=== PATIENT | female | born 1985 | race Caucasian/White ===

== ENCOUNTER 2023-05-28 08:00 | Outpatient (CLI) | payer OTHER ==
[2023-05-28 17:04] LABS: BILIRUBIN,URINE NEGATIVE (NEGATIVE); GLUCOSE, URINE (UA) NEGATIVE (NEGATIVE); KETONES,URINE (UA) NEGATIVE (NEGATIVE); LEUKOCYTE ESTERASE, URINE NEGATIVE (NEGATIVE); NITRITE,URINE NEGATIVE (NEGATIVE); OCCULT BLOOD,URINE NEGATIVE (NEGATIVE); PROTEIN,URINE NEGATIVE (NEGATIVE); UROBILINOGEN,URINE 0.2 (NORMAL) E.U./dL (NORMAL)
[2023-05-28 17:20] LABS: BACTERIA,URINE None Seen /HPF (None Seen); CLARITY,URINE HAZY (CLEAR); RBC,URINE None Seen /HPF (0-5); SQUAMOUS EPITHELIAL CELL,UR FEW Squamous (<= Few); WBC,URINE 0-3 /HPF (0-5)
== END 2023-05-28 23:59 | disposition home or self-care (01) ==
LOC: LAB.WC 08:00
PROVIDERS: ATTEND Nurse Practitioner
DX: Z32.01 Encounter for pregnancy test, result positive (principal)
CPT/HCPCS: 81001; 87086

== ENCOUNTER 2023-06-01 13:13 | Outpatient (CLI) | payer OTHER ==
[2023-06-01 17:57] LABS: BASOPHILS % (AUTO) 0.5 %; EOSINOPHILS # (AUTO) 0.1 10^3/uL (0.0-0.7); EOSINOPHILS % (AUTO) 1.1 %; HCT - HEMATOCRIT 33.5 % (37.0-47.0); HGB - HEMOGLOBIN 11.1 g/dL (12.0-16.0); LYMPHOCYTES % (AUTO) 30.3 %; MEAN CORPUSCULAR HEMOGLOBIN 30.9 pg (27.0-31.0); MEAN CORPUSCULAR HGB CONC 33.1 g/dL (32.0-36.0); MEAN CORPUSCULAR VOLUME 93.3 fL (81.0-99.0); MEAN PLATELET VOLUME 10.8 fL (7.9-10.8); MONOCYTES # (AUTO) 0.4 10^3/uL (0.0-1.0); MONOCYTES % (AUTO) 5.7 %; NEUTROPHILS # (AUTO) 4.1 10^3/uL (1.5-6.6); NEUTROPHILS % (AUTO) 62.1 %; PLT - PLATELET COUNT 281 10^3/uL (130-450); RED BLOOD COUNT 3.59 10^6/uL (4.20-5.40); RED CELL DISTRIBUTION WIDTH 12.6 % (12.0-15.0); WHITE BLOOD COUNT 6.5 x10^3/uL (4.8-10.8)
[2023-06-03 06:08] LABS: RPR Non Reactive (Non Reactive)
[2023-06-03 07:08] LABS: HBsAG SCREEN Negative (Negative)
[2023-06-03 10:08] LABS: VARICELLA-ZOSTER AB IGG 1718 index (Immune >165)
[2023-06-05 01:08] LABS: HCV AB Non Reactive (Non Reactive)
== END 2023-06-01 13:14 | disposition home or self-care (01) ==
LOC: LAB.N 13:13
PROVIDERS: ATTEND Pediatrics
DX: Z32.01 Encounter for pregnancy test, result positive (principal)
CPT/HCPCS: 36415; 85025; 86592; 86762; 86787; 86803; 86850; 86900; 86901; 87340; 87389

== ENCOUNTER 2023-06-06 11:51 | Outpatient (CLI) | payer OTHER ==
--- NOTE | 2023-06-06 13:01 | Ultrasound Report ---
PROCEDURE: OB 1st Trimester INDICATIONS: POSITIVE TEST OUTSIDE/PRIOR DATING DATA: Last menstrual period (LMP): 04/09/2023. LMP-based estimated date of delivery (MARISOL): 01/14/2024. First dating scan (date and location): 06/06/2023. Estimated date of delivery (MARISOL) from first dating scan: 01/12/2024. TECHNIQUE: Real-time scanning was performed of the fetus and maternal pelvic organs, with image documentation. COMPARISON: None. FINDINGS: Intrauterine gestational sac present. Embryo: Present, measuring 2 cm, 8 weeks 4 days. Heart rate: 176 bpm. Other: No perigestational fluid collection. Measurement variability in dating: +/- 4 weeks by LMP, +/- 7 days by mean sac diameter (use before 6 weeks gestation if crown-rump length not able to be measured), +/- 5 days by crown-rump length (6-12 weeks gestation). Maternal organs: Ovaries appear within normal limits. IMPRESSION: Single living intrauterine at 8 weeks 4 days, MARISOL of 01/12/2024. Findings are concordant [facility] clinical dating. Reviewed by: Teddy Mcnally MD on 06/06/2023 12:59 PM PDT Approved by: Teddy Mcnally MD on 06/06/2023 12:59 PM PDT Station ID: [id number]
== END 2023-06-06 11:52 | disposition home or self-care (01) ==
LOC: DI 11:51
PROVIDERS: ATTEND Nurse Practitioner
DX: Z34.91 Encounter for supervision of normal pregnancy, unspecified, first trimester (principal)

== ENCOUNTER 2023-06-18 08:00 | Outpatient (CLI) | payer OTHER ==
[2023-06-18 17:46] LABS: CHLAMYDIA TRACHOMATIS DNA NEGATIVE (NEGATIVE); NEISSERIA GONORRHOEAE DNA NEGATIVE (NEGATIVE); TRICHOMONAS VAGINALIS DNA NEGATIVE (NEGATIVE)
== END 2023-06-18 23:59 | disposition home or self-care (01) ==
LOC: LAB.WC 08:00
PROVIDERS: ATTEND Nurse Practitioner
DX: Z11.3 Encounter for screening for infections with a predominantly sexual mode of transmission (principal)
CPT/HCPCS: 87491; 87591; 87661

== ENCOUNTER 2023-06-20 14:36 | Outpatient (CLI) | payer OTHER | END 2023-06-20 14:37 | disposition home or self-care (01) | LOC: LAB 14:36 | PROVIDERS: ATTEND Nurse Practitioner | DX: Z34.90 Encounter for supervision of normal pregnancy, unspecified, unspecified trimester (principal) ==

== ENCOUNTER 2023-08-06 12:54 | Outpatient (CLI) | payer OTHER | END 2023-08-06 12:55 | disposition home or self-care (01) | LOC: LAB.N 12:54 | PROVIDERS: ATTEND Obstetrics & Gynecology | DX: O09.521 Supervision of elderly multigravida, first trimester (principal) | CPT/HCPCS: 36415; 81511; 82950 ==

== ENCOUNTER 2023-09-03 16:56 | Outpatient (CLI) | payer OTHER ==
--- NOTE | 2023-09-04 20:34 | Ultrasound Report ---
PROCEDURE: OB Anatomy Scan INDICATIONS: SUPERVISION OF OUTSIDE/PRIOR DATING DATA: Last menstrual period (LMP): 04/09/2023. LMP-based estimated date of delivery (MARISOL): 01/14/2024. First dating scan (date and location): 06/06/2023. Estimated date of delivery (MARISOL) from first dating scan: 01/12/2024. The below data below was generated using the working MARISOL of 01/14/2024 TECHNIQUE: Real-time scanning was performed of the fetus, with image documentation and biometric measurements. Endovaginal scanning: Not performed. COMPARISON: 06/06/2023 FINDINGS: General: A single living intrauterine gestation is present. Presentation: Transverse with head towards maternal right side. Placenta: Placental position is posterior, without previa. Amniotic fluid index: 14.9 cm, within normal limits for gestational age. heart rate: 158 beats per minute. Maternal cervical canal: Closed and measures 5.05 cm long; normal length is 2.5 cm or more. biometrics: Biparietal diameter: 4.74 cm, 20 weeks, 2 days, 22.5% Head circumference: 19.13 cm, 21 weeks, 3 days, 58.3% Abdominal circumference: 16.36 cm, 21 weeks, 3 days, 57.4% Femur length: 3.4 cm, 20 weeks, 6 days, 34.7% Estimated gestational age from initial scan: 21 weeks, 0 day Composite gestational age from present scan: 21 weeks, 0 day Estimated weight and percentile: 402.1 g, 52.5% Measurement variability in biometric dating: +/- 10 days from 12-20 weeks gestation, +/- 2 weeks from 20-30 weeks gestation, +/- 3 weeks at 30 weeks gestation or later. Anatomic survey: Neuro: Ventricles are normal at less than 10 mm. Cisterna magna is normal at 3-11 mm. Cerebellum i s normal in size and morphology. Nuchal skin fold: Normal at less than 6 mm between 14 and 20 weeks gestational age. Face: Nose and lips, facial profile are normal. Spine: Not well seen due to position Heart: Not well seen due to position. Diaphragm: Diaphragm is intact. Stomach: Left-sided stomach is present. Kidneys: No hydronephrosis. Normal is less than 5 mm in 2nd trimester, less than 7 mm in 3rd trimester. Cord: 3 vessel cord has orthotopic insertion. Bladder: Normal in size. Extremities: All 4 extremities are visualized. IMPRESSION: 1. Single live intrauterine gestation with fetus in transverse presentation. heart rate is 158 bpm. Normal BORIS at 14.9 cm. Normal growth with estimated weight measures 52.5%. 2. Limited evaluation of cisterna magna and/cerebellum, neck, spine, and cardiac structur es due to position. Rest of the anatomic survey is normal. Reviewed by: Marshall Galeano MD on 09/04/2023 8:33 PM PDT Approved by: Marshall Galeano MD on 09/04/2023 8:33 PM PDT Station ID: [id number]
== END 2023-09-03 16:57 | disposition home or self-care (01) ==
LOC: DI 16:56
PROVIDERS: ATTEND Obstetrics & Gynecology
DX: O09.522 Supervision of elderly multigravida, second trimester (principal); Z3A.21 21 weeks gestation of pregnancy

== ENCOUNTER 2023-10-01 13:51 | Outpatient (CLI) | payer OTHER ==
--- NOTE | 2023-10-01 19:59 | Ultrasound Report ---
PROCEDURE: OB Follow up INDICATIONS: SUPERVISION OF . Incomplete anatomy study. OUTSIDE/PRIOR DATING DATA: Last menstrual period (LMP): 04/09/2023. LMP-based estimated date of delivery (MARISOL): 01/14/2024. First dating scan (date and location): 06/06/2023. Estimated date of delivery (MARISOL) from first dating scan: 01/12/24. The below data below was generated using the working MARISOL of 01/14/2024 TECHNIQUE: Real-time scanning was performed of the fetus, with image documentation and biometric measurements. Endovaginal scanning: Not performed. COMPARISON: 09/03/2023. FINDINGS: General: A single living intrauterine gestation is present. Presentation: Vertex Placenta: Placental position is posterior, without previa. Amniotic fluid index: 15.1 cm, within normal limits for gestational age. heart rate: 150 beats per minute. Maternal cervical canal: 5.7 cm long; normal length is 2.5 cm or more. biometrics: spine, four-chamber view of the heart, and cardiac outflow tracts are all well seen and within normal limits. spine within normal limits. Cisterna magna/cerebellum within normal limits. Estimated gestational age from initial scan: not applicable. Other: Not applicable. IMPRESSION: 1. Late second trimester intrauterine with no sonographic evidence of complications. 2. The structures not previously well evaluated on the anatomy scan of 09/03/2023 are seen and n ormal in appearance. This completes a normal second trimester anatomy study. Reviewed by: Jin Hernandez MD on 10/01/2023 7:57 PM PDT Approved by: Jin Hernandez MD on 10/01/2023 7:57 PM PDT Station ID: [id number]
== END 2023-10-01 13:52 | disposition home or self-care (01) ==
LOC: DI 13:51
PROVIDERS: ATTEND Obstetrics & Gynecology
DX: O09.522 Supervision of elderly multigravida, second trimester (principal); Z3A.00 Weeks of gestation of pregnancy not specified

== ENCOUNTER 2023-10-22 14:32 | Outpatient (CLI) | payer OTHER ==
[2023-10-22 18:01] LABS: HCT - HEMATOCRIT 31.9 % (37.0-47.0); HGB - HEMOGLOBIN 10.5 g/dL (12.0-16.0); MEAN CORPUSCULAR HEMOGLOBIN 31.6 pg (27.0-31.0); MEAN CORPUSCULAR HGB CONC 32.9 g/dL (32.0-36.0); MEAN CORPUSCULAR VOLUME 96.1 fL (81.0-99.0); MEAN PLATELET VOLUME 10.9 fL (7.9-10.8); RED BLOOD COUNT 3.32 10^6/uL (4.20-5.40); RED CELL DISTRIBUTION WIDTH 12.6 % (12.0-15.0); WHITE BLOOD COUNT 9.5 x10^3/uL (4.8-10.8)
== END 2023-10-22 14:33 | disposition home or self-care (01) ==
LOC: LAB.N 14:32
PROVIDERS: ATTEND Nurse Practitioner
DX: O09.522 Supervision of elderly multigravida, second trimester (principal)
CPT/HCPCS: 36415; 82950; 85027; 86592

== ENCOUNTER 2023-12-20 08:00 | Outpatient (CLI) | payer OTHER | END 2023-12-20 23:59 | disposition home or self-care (01) | LOC: LAB.WC 08:00 | PROVIDERS: ATTEND Nurse Practitioner | DX: Z36.85 Encounter for antenatal screening for Streptococcus B (principal) | CPT/HCPCS: 87081; 87797 ==

== ENCOUNTER 2024-01-10 16:23 | Inpatient (IN) ==
[2024-01-10 17:29] LABS: RUPTURE OF MEMBRANES PLUS POSITIVE (NEGATIVE)
--- NOTE | 2024-01-10 18:02 | HISTORY & PHYSICAL EXAMINATION ---
Admit History Smoking Status: Unknown if ever smoked HPI Current : Vital Signs Temperature 36.6 C 01/10/24 17:16 Pulse Rate 64 01/10/24 17:16 Respiratory Rate 15 01/10/24 17:16 Blood Pressure 129/66 01/10/24 17:16 Temperature 36.6 C 01/10/24 18:20 Pulse Rate 67 01/10/24 18:20 Respiratory Rate 16 01/10/24 18:20 Blood Pressure 129/66 01/10/24 18:20 NST Procedure NST Procedure: NST Procedure Start Date 01/10/24 Start Time 16:54 Stop Time 17:30 Vibroacoustic Stimulation Used No Patient States Movement Yes Meds/Allgy Home Medications Ambulatory Orders Medication Instructions Recorded Confirmed omeprazole 20 mg capsule,delayed 20 mg PO QDAY 01/02/24 01/02/24 release vits no.126-ferrous fum tab PO 01/02/24 01/02/24 28 mg iron-folic acid 800 mcg tablet (Classic ) sertraline 25 mg tablet 100 mg PO DAILY 01/02/24 01/10/24 Allergies Allergies Allergy/AdvReac Type Severity Reaction Status Date / Time No Known Drug Allergies Allergy Verified 01/02/24 15:15 [facility] Social History Social History (Updated 01/09/24 @ 12:26 by Lizeth Reyes [facility]) Smoking Status: Former smoker Do you dip or chew tobacco?: No Physical Abdominal Exam Vital Signs: Temp Pulse Resp BP 36.6 C 67 16 129/66 01/10/24 18:20 01/10/24 18:20 01/10/24 18:20 01/10/24 18:20 Plan for Labor Plan For Labor I expect patient to be DC'd or transferred within 96 hours.: Yes Plan for Labor: HPI: This 38 yo @ 39+3 weeks by LMP and confirmed by 8+4 week ultrasound presented to L&D in stable condition. She felt like she started leaking at about 0930 today however she is consistently incontinent of urine and initially dismissed it until she began patsy closer to lunchtime. Contractions are now about every 10 minutes. + pooling on speculum exam, + nitrazine, + ROM plus. GBS positive. No known antibiotic allergies. SVE deferred secondary to rupture but visibly less than 2cm and soft. Her is deployed and had hoped he would be able to catch a flight home with the onset of labor. Unfortunately, if he takes the earliest flight, he wont reach [facility] until tomorrow night. She was also hopeful her Mom would be able to be here but she wont arrive until the week. She has a friend caring for her daughter. We reviewed management options at length and she desires expectant management. She has been a patient of [facility] for the duration of her which has remained uncomplicated with the exception of AMA and elevated BMI. Has had weekly reactive NSTs. ROS: No Headache, visual changes or right upper quadrant abdominal pain. Denies significant N/V. Denies urinary urgency or dysuria. All other symptoms reviewed and were negative except per HPI. In the event of an emergency, accepts the administration of blood products. Last u/s EFW: FAS @ 21 weeks: 52.5% Total maternal weight gain: <10# G-2P-1001 OB Hx: G1: 2020, 6#11oz, perineal laceration, post dates, precipitous 9cm on admission G2: Current Medical Hx: No significant Surgical Hx: None Social Hx: Monogamous with male partner. Denies current use of alcohol or tobacco, marijuana or other recreational drugs. Reports that she is safe in current relationship. Family Hx: Denies family history of congenital anomalies, Cystic Fibrosis or chromosomal abnormalities Allergies: NKDA Medications: Omeprazole, vitamin, sertraline 25mg/daily LMP: 04/09/2023 MARISOL by LMP: 01/14/2024 06/06/2023 /8+4 /C/W dates Final MARISOL: 01/14/2024 (u/s MARISOL: 01/12/2024) FOB: Diego (deployed) It's a girl!!! 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 zoloft: Mood management, hx of PPD. Encouraged to continue FOB/: Diego Daughter: Adeline (4yr) Pre- Weight:215.8 BMI: 36.04 Blood type: A+ Rh: + Antibody: Negative CBC:11.1/33.5 281 RUB: Immune VZV: Immune HBsAg: Negative HepC: Non reactive RPR/AB-EIA: Non reactive HIV:Non reactive PAP: 06/23/22 Normal/HPV negative GC/CT: 06/18/2023 HSV: denies in self and partner Genetic testing: [id number]-Mghigy/negative AFP -negative Covid: Flu: 12/13/2023 RSV 12/13/2023 FAS: Placenta: posterior w/o previa Cord: 3VC BORIS: 14.9cm WNL EFW:402.1g 52.5% Follow-up 10/04 normal. Early GTT- 08/05 @ 17wks- 104 50gm OGCT: 113 3HR GTT: TDAP: 10/17 Breast Pump: 10/17 3rd trimester PLT 246 HCT: 31.9 HGB 10.5 RPR: NR GBS: Positive Delivery plan: preference sheet given (11/14) Contraception: still undecided (11/14) Physical exam: Normocephalic, atraumatic Heart RRR w/o M/G/R Lungs CTAB Abdomen gravid, soft, nontender. EFW 3600 FHR baseline 130, moderate variability, + accelerations, no decelerations Contractions palpate moderate every 10 minutes with soft resting tone SVE visibility closed, vertex, membranes grossly ruptured Bilateral LE's no edema Mood is good. Assessment: 1. 38 yo @ 39+3 weeks gestation by 8+4 wk U/S 2. Premature rupture of membranes 3. FHR 130 Cat I 4. GBS positive, no known antibiotic allergies Plan: Admit to [facility] for expectant management NST q 2 hours unless further monitoring is indicated Jacuzzi PRN. Nitrous oxide PRN. Epidural PRN Maternal Request. Anticipate . Conclusion/Plan Lab Results 01/10/24 19:50 01/10/24 19:50
[2024-01-10] MEDS ORDERED: LABETALOL 20 MG/4 ML SYRINGE IVP PRN ×3 (18:08)
[2024-01-10] MEDS ORDERED: TRANEXAMIC ACID IN NACL 1,000 MG/100 ML BAG IV PRN (18:08)
[2024-01-10] MEDS ORDERED: OXYTOCIN/SODIUM CHLORIDE 500 ML IV PRN (18:08)
[2024-01-10] MEDS ORDERED: METHYLERGONOVINE 0.2 MG/ML VIAL IM PRN (18:08)
[2024-01-10] MEDS ORDERED: fentaNYL 100 MCG/2 ML VIAL IVP PRN (18:08)
[2024-01-10] MEDS ORDERED: miSOPROStoL 200 MCG TABLET BC PRN (18:08)
[2024-01-10] MEDS ORDERED: lidocaine 1% 20 ML MDV ID PRN (18:08)
[2024-01-10] MEDS ORDERED: TERBUTALINE 1 MG/ML VIAL SUBQ PRN (18:08)
[2024-01-10] MEDS ORDERED: NIFEdipine 10 MG CAPSULE PO PRN (18:08)
[2024-01-10] MEDS ORDERED: OXYTOCIN 10 UNIT/ML VIAL IM PRN (18:08)
[2024-01-10] MEDS ORDERED: SODIUM CHLORIDE FLUSH 0.9% 10 ML SYRINGE IVP PRN (18:08)
[2024-01-10] MEDS ORDERED: ACETAMINOPHEN 500 MG TABLET PO PRN (18:08)
[2024-01-10] MEDS ORDERED: miSOPROStoL 200 MCG TABLET PR PRN (18:08)
[2024-01-10] MEDS ORDERED: hydrALAZINE INJ 20 MG/ML VIAL IVP PRN (18:08)
[2024-01-10] MEDS: AMPICILLIN 2 GM in SODIUM CHLORIDE 0.9% MINIBAG 100 ML IV ONE (20:00)
[2024-01-10 20:05] LABS: BASOPHILS % (AUTO) 0.1 %; EOSINOPHILS % (AUTO) 0.2 %; HCT - HEMATOCRIT 30.7 % (37.0-47.0); HGB - HEMOGLOBIN 10.5 g/dL (12.0-16.0); LYMPHOCYTES # (AUTO) 1.9 10^3/uL (1.5-3.5); LYMPHOCYTES % (AUTO) 22.9 %; MEAN CORPUSCULAR HEMOGLOBIN 31.1 pg (27.0-31.0); MEAN CORPUSCULAR HGB CONC 34.2 g/dL (32.0-36.0); MEAN CORPUSCULAR VOLUME 90.8 fL (81.0-99.0); MEAN PLATELET VOLUME 12.2 fL (7.9-10.8); MONOCYTES # (AUTO) 0.3 10^3/uL (0.0-1.0); MONOCYTES % (AUTO) 3.2 %; NEUTROPHILS % (AUTO) 73.2 %; PLT - PLATELET COUNT 203 10^3/uL (130-450); RED BLOOD COUNT 3.38 10^6/uL (4.20-5.40); RED CELL DISTRIBUTION WIDTH 12.6 % (12.0-15.0); WHITE BLOOD COUNT 8.1 x10^3/uL (4.8-10.8)
[2024-01-10] MEDS: SODIUM CHLORIDE FLUSH 0.9% 10 ML SYRINGE IVP SCH (20:05)
[2024-01-10 22:09] LABS: ALBUMIN 3.2 g/dL (3.2-5.5); ALBUMIN/GLOBULIN RATIO 0.9 (1.0-2.2); BILIRUBIN,TOTAL 0.4 mg/dL (0.2-1.0); CALCIUM 8.8 mg/dL (8.5-10.3); CREATININE 0.7 mg/dL (0.6-1.3); POTASSIUM 3.9 mmol/L (3.5-4.5); TOTAL PROTEIN 6.6 g/dL (6.4-8.9)
[2024-01-11] MEDS: AMPICILLIN 1 GM in SODIUM CHLORIDE 0.9% MINIBAG 100 ML IV SCH
[2024-01-11] MEDS: CALCIUM CARBONATE CHEW 500 MG TABLET PO PRN (00:48)
[2024-01-11] MEDS: SERTRALINE 50 MG TABLET PO SCH (08:46)
--- NOTE | 2024-01-11 09:52 | PROVIDER PROGRESS NOTE ---
Labor Progress Note Labor Progress Note Labor Progress Note/Additional Text: S: Sitting up eating breakfast. Feeling sad she had her first night away from her daughter last night. Reports contractions q 10 minutes, mild. Continues to leak very pale yellow fluid. Coping well. Still hopeful her will make it back by delivery. We discussed options for induction of labor and she requests nipple stimulation x 1 hour prior to medical management. O: Most recent NSTs, FHR baseline 130, moderate variability, + accelerations, no other deceleration Q2 hr NSTs overnight, cat I, reactive with the exception of [id number] prolonged variable with resolution to baseline and 90 minute monitoring category I following before monitoring discontinued. Overall reassuring with moderate variability maintained throughout. Contractions not palpated or picking up on toco. SVE not indicated. Vertex by Keo. Membranes grossly ruptured, light yellow (light meconium stained) amniotic fluid. A: 37yo @ 39+3 wks gestation by LMP c/w 8+4 wk U/S FHR Category I Elevated BP x2 (140/86, 141/86) but not 4 hours apart, does not meet criteria for gestational hypertension GBS positive- ampicillin q4 hours. Total doses: x4. P: Discussed increased risk of infection with prolonged premature rupture in addition to light meconium. Agreeable to misoprostol vs pitocin augmentation starting at 10:30 but desires to start with nipple stimulation x 1 hour prior and then decide which route. Will begin Continuous monitoring with medical management. Desires unmedicated delivery at this time but prn nitrous/epidural per maternal request. Encourage ambulation, rotations in bed on peanut ball Anticipate .
--- NOTE | 2024-01-11 10:46 | PROVIDER PROGRESS NOTE ---
Labor Progress Note Labor Progress Note Labor Progress Note/Additional Text: S: Pt open to starting oxytocin for induction of labor at this time. She is feeling discouraged that her body is not making change on its own. Her is now on the airplane from [facility] and on his way home. She is really hoping her makes it in time for delivery. O: FHR baseline 140s, moderate variability, + accels, no decels no contractions appreciated via tocometry SROM x 25hrs - afebrile. Light meconium stained amniotic fluid SVE 3/70/-2, posterior. Vertex. A: 38yo @ 39.4wks gestation SROM x 25hrs Meconium stained amniotic fluid P: Initiate pitocin for induction of labor with titration per protocol Continuous monitoring Encourage ambulation and position changes. Jacuzzi PRN. Nitrous oxide PRN. Epidural per maternal request however pt intending unmedicated delivery. Anticipate .
[2024-01-11] MEDS: OXYTOCIN/SODIUM CHLORIDE 500 ML IV SCH (11:03)
[2024-01-11] MEDS: LACTATED RINGERS 1,000 ML IV PRN (11:04)
--- NOTE | 2024-01-11 17:30 | PHARMACY PROGRESS NOTE ---
Best Possible Medication History Admit Date and Time: 01/10/24 [id number] [facility] Statement: As the person ultimately responsible for medication therapy, providers are able to order a medication from an existing home medication list in [facility] via the "Reconcile Routine" prior to Confirmation of that medication by administrative support associate. Such practice is discouraged except when the physician, in their clinical judgment, deems that a medical need exists for a medication without regard to previous use.
[2024-01-11] MEDS ORDERED: IBUPROFEN 800 MG TABLET PO PRN (17:52)
[2024-01-11] MEDS ORDERED: WITCH HAZEL/GLYCERIN 1 PAD TOP PRN (17:52)
[2024-01-11] MEDS ORDERED: ACETAMINOPHEN 500 MG TABLET PO PRN (17:52)
[2024-01-11] MEDS ORDERED: HYDROCORTISONE 1% CREAM 28 GM TUBE TOP PRN (17:52)
[2024-01-11] MEDS ORDERED: OXYTOCIN/SODIUM CHLORIDE 500 ML IV PRN (17:52)
[2024-01-11] MEDS ORDERED: SIMETHICONE CHEW 80 MG TABLET PO PRN (17:52)
--- NOTE | 2024-01-11 17:59 | DELIVERY NOTE ---
Delivery Note Labor Labor: positive Augmented by oxytocin Infant Delivery Method Delivery Method: positive Spontaneous vaginal delivery Presentation Presentation: positive Vertex Nuchal Cord Nuchal Cord: positive None Amniotic Fluid Description Amniotic Fluid Description: positive Light meconium Episiotomy Type Episiotomy Type: positive None Laceration Laceration: positive None Delivery Outcome Delivery Outcome: positive Livebirth [place]: positive Placed in direct skin contact with mother, Bulb syringe, Stimulated, Warmed and [place] used Cord Cord: positive 3 vessels Placenta Placenta: positive Intact and Spontaneous Estimated Blood Loss Estimated Blood Loss (in cc): 150 Post Delivery Events Post Delivery Events: positive No post delivery events Delivery Comments (Free Text/Narrative) Delivery Comments (Free Text/Narrative): Labor: This 38yo @ 39.4wks gestation presented to [facility] with PROM labor and grossly ruptured membranes with leakage of light meconium stained amniotic fluid that occurred on 01/10/2024 @ 0930am. Cervical exam was deferred per pt request and vertex by jony. She strongly desired expectant management x 24hrs. She was treated form GBS positive status with Ampicillin for prophylaxis per protocol for adequate treatment. She agreed to augmentation of labor with initiation of pitocin for augmentation at 1100 on 01/11/2024. Pitocin was initiated and titrated per protocol for a maximum infusion rate of 10mU/mL. FHR demonstrated Category I pattern throughout labor. Normal labor course. She progressed to c/c/+1 at 1635. : Normal SVB of viable female on 01/11/2024 @ [id number]. No nucal cord. The was placed on maternal abdomen, stimulated, dried, and placed skin to skin. 's were 9/9 at 1 and 5 min respectively. Pitocin administered via IV for hemostasis. The umbilical cord was allowed to stop pulsating at which time it was doubly clamped by CNM and cut by FOB. Cord blood was obtained. 3VC. Fundal massage and gentle cord traction applied for active management of the third stage. Placenta delivered spontaneously and intact at 1653. EBL 150mL. Fourth stage: Uterine fundus firm and there is no excessive bleeding. The perineum, vagina, and cervix were inspected and found to be intact. Tissues well approximated. initiated. Both mother and baby were left in stable condition.
[2024-01-12 08:27] VITALS: O2SAT 99
[2024-01-12] MEDS: DOCUSATE SODIUM 100 MG CAPSULE PO SCH (08:57)
--- NOTE | 2024-01-12 09:34 | Discharge Summary ---
Discharge Summary Admit Date: 01/10/24 Discharge Date: 01/12/24 Code Status: Attempt Resuscitation HPI History of Present Illness: Diagnosis on admission: 1. 38 yo @ 39+3 weeks gestation by 8+4 wk U/S 2. Premature rupture of membranes 3. FHR 130 Cat I 4. GBS positive, no known antibiotic allergies Diagnosis on Discharge 1. 38 yo s/p @ 39+4 weeks gestation 2. Intact perineum 3. Exclusively Physical exam: Normocephalic, atraumatic Heart RRR w/o M/G/R Lungs CTAB Normal uterine involution, FF below umbilicus Small/ scant rubra bleeding No significant perineal discomfort. Bilateral LE's no edema Mood is good. Brief History: She is a patient of [facility] who presented on 01/10/2024 s/p SROM earlier that morning. Adequately treated for GBS. She declined augmentation until 24 hours post rupture. After onset of active labor, she quickly progressed from to complete. Labor progressed without medication pain management. She spontaneously delivered a viable female apgars 9 and 9 at 1 and 5 minutes respectively. EBL 150 ml. intact perineum. weight: 3220 She has been doing well in her course. She is ambulating and tolerating a regular diet. She is urinating without difficulty and her lochia is normal. Her pain is well controlled without narcotic management. She will be discharged to home today on day 1 and encouraged IBU, tylenol and stool softeners PRN. She intends to follow up with [facility] in 1 week for in person visit ( 01/17/24 @ 1345 with Lizeth) given occasional elevated blood pressures through her hospital course.. She has been given precautions to call if she has any new or worsening sx such as fevers, chills, abdominal pain, increasing bleeding, or foul smelling vaginal lochia. preeclamptic precautions reviewed as well. VZV: immune Rubella: immune RH: A+ ALLERGIES Allergies Allergy/AdvReac Type Severity Reaction Status Date / Time No Known Drug Allergies Allergy Verified 01/02/24 15:15 MEDICATIONS Ambulatory Orders Medication Instructions Recorded Confirmed vits no.126-ferrous fum 1 tab PO DAILY 01/02/24 01/11/24 28 mg iron-folic acid 800 mcg tablet (Classic ) sertraline 25 mg tablet 100 mg PO DAILY 01/02/24 01/10/24 calcium carbonate (Tums) 200 mg PO DAILY 01/11/24 01/11/24 LABS 01/10/24 19:50 01/10/24 19:50 TIME SPENT Time Spent in Discharge (Minutes): 30 Discharge Plan Discharge Patient Disposition: 01 [facility], Self Care Medically Cleared Date:: 01/12/24 Prescriptions: Continued calcium carbonate [Tums] 200 mg calcium (500 mg) tablet,chewable 200 mg PO DAILY sertraline 25 mg tablet 100 mg PO DAILY Rx Instructions: once a day Classic 28 mg iron- 800 mcg tablet 1 tab PO DAILY Discontinued omeprazole 20 mg capsule,delayed release(DR/EC) 20 mg PO QDAY Activity Restrictions: No Restrictions Diet: Regular Print Language: Macedonian Patient Instructions: Vaginal, , Self Care Follow-up Care: Matty Ibarra MD [Primary Care Provider] - Lizeth Reyes ARNP [Provider Admit Priv/Credential] -
--- NOTE | 2024-01-12 18:48 | Labor Flowsheet ---
Labor Flowsheet Datetime Report Generated by CPN: 01/12/2024 18:48 Datetime: 01/12/2024 12:25 VITAL SIGNS NBP Sys/Nikki/Mean (mmHg): 124 : 88 : 95 Pulse: 65 SpO2 (%): 98 LaborFlag: Labor Datetime: 01/11/2024 17:48 Respirations: 16 Temperature (C): 36.6 Datetime: 01/11/2024 16:51 MEDICATIONS Pitocin (milliunits): Increased to @ 999 Medication Comments: Post pitocin Datetime: 01/11/2024 16:35 STAGE 2 Pushing: Coached on Pushing Pushing Position: Pushing with Contractions Pushing Progress: Descent with Pushing Stage 2 Comments: complete and pushing Datetime: 01/11/2024 16:30 UTERINE ACTIVITY Monitor Mode: Palpation Frequency (min): 2-4 Quality: Strong Duration (sec): 40-60 Pattern: Normal: <= 5 Contractions in 10 Minutes Resting Tone (Palpate): Relaxed Contraction Comments: RN bedside ASSESSMENT A Monitor Mode: Telemetry FHR Baseline Rate : 125 Variability: Moderate 6-25 bpm Accelerations: None Decelerations: None Category: Category I Datetime: 01/11/2024 16:13 Communication Comments: Provider Antonella in room Datetime: 01/11/2024 16:00 Antibiotics: Ampicillin IV 1 Gm Datetime: 01/11/2024 15:55 VAGINAL EXAM Dilatation (cm): 5.5 Effacement (%): 90 Station: 0 Exam by: Valadez Datetime: 01/11/2024 15:08 Patient Care Comments: Pt. in jacuzzi Datetime: 01/11/2024 14:45 Pitocin Checklist: At Least 1 Acceleration of 15 bpm x 15 Seconds in 30 Minutes or Adequate Variabi lity; No More than 1 Late Deceleration Occurred in Past 30 Minutes; No More than 2 Variable Decelerat ions > 60 Seconds in Duration and decreasing >60 bpm in 30 minutes; No More than 5 Uterine Contractio ns in 10 Minutes for any 20 Minute Interval; Uterus Palpates Soft between Contractions COMMUNICATION Communication: RN at Bedside; RN Reviewed Strip Datetime: 01/11/2024 14:21 Stage of : Labor Provider Notified (Name): Antonella [employer] OPERATOR Notification Reason: Status; Uterine Activity Datetime: 01/11/2024 13:35 PATIENT CARE I/O Interventions: Up to BR Datetime: 01/11/2024 10:33 Cervix, Consistency: Soft Cervix, Position: Posterior Datetime: 01/11/2024 06:29 Comments: 125 Datetime: 01/11/2024 02:23 Monitor Interventions for UA: Vincent Adjusted Datetime: 01/11/2024 01:59 Monitor Interventions for FHR: Ultrasound Adjusted Datetime: 01/10/2024 19:30 Membrane Status: Ruptured Membranes Ruptured Date/Time: 01/10/2024 09:30 Membranes Rupture Method: Spontaneous Amniotic Fluid Color: Light Meconium MATERNAL ASSESSMENT Level of Consciousness: Alert Headache: Denies Nausea/Vomiting: Denies Datetime: 01/10/2024 19:29 Amniotic Fluid Amount: Moderate Amniotic Fluid Odor: Normal
== END 2024-01-12 14:47 | disposition home or self-care (01) | DRG 807 ==
LOC: WFO 16:23 → FBP 16:36
PROVIDERS: ADMIT Nurse Practitioner Obstetrics & Gynecology; ATTEND Nurse Practitioner Obstetrics & Gynecology